=== PATIENT | male | born 1930 | race Caucasian/White ===

== ENCOUNTER → 2016-09-18 | Outpatient (CLI) | payer MEDICARE, OTHER ==
[~2016-09-18] MED LIST: ACETAMINOPHEN500 M1 PO; ASPIRIN LO-DOSE81 MG PO; BENADRYL25 MG PO; CELEXA20 MG PO; CELEXA40 MG PO; FLOMAX0.4 MG PO; FLONASE 50 MCG/16 GM NOSE; ICAPS TABLET1 EACH PO; LEVAQUIN 250 M250 MG PO; LIPITOR40 MG PO; LISINOPRIL10 MG PO; METOPROLOL PO; NITROSTAT0.4 MG SL; PEPCID40 MG PO; SALINE NOSE SPR45 ML NOSE; SYSTANE GEL EYE10 ML OPHTH; TOPROL XL25 MG PO; TRIAMTERENE PO
[2016-09-18 11:38] LABS: ANION GAP 11.6 (10.0-19.0); CALCIUM 8.8 mg/dL (8.5-10.5); POTASSIUM 4.6 mMol/L (3.7-5.1)
== END | disposition disaster alternative care site (69) ==
LOC: LGSOS 11:23
PROVIDERS: Internal Medicine Interventional Cardiology
DX: I50.9 Heart failure, unspecified (principal)

== ENCOUNTER → 2016-10-02 | Outpatient (CLI) | payer MEDICARE, OTHER ==
[2016-10-02 14:32] LABS: ANION GAP 10.3 (10.0-19.0); CALCIUM 8.4 mg/dL (8.5-10.5); CREATININE 1.8 mg/dL (0.6-1.3); POTASSIUM 4.3 mMol/L (3.7-5.1)
== END | disposition disaster alternative care site (69) ==
LOC: LGSOS 14:16
PROVIDERS: Internal Medicine Interventional Cardiology
DX: I50.9 Heart failure, unspecified (principal)

== ENCOUNTER → 2016-11-14 | Outpatient (CLI) | payer MEDICARE, OTHER ==
[2016-11-14 12:09] LABS: ANION GAP 11.5 (10.0-19.0); CALCIUM 8.4 mg/dL (8.5-10.5); CREATININE 1.8 mg/dL (0.6-1.3)
[2016-11-14 12:12] LABS: POTASSIUM 4.5 mMol/L (3.7-5.1)
== END | disposition disaster alternative care site (69) ==
LOC: LGSOS 11:56
PROVIDERS: Internal Medicine Interventional Cardiology
DX: I50.9 Heart failure, unspecified (principal)

== ENCOUNTER → 2017-01-03 | Outpatient (CLI) | payer MEDICARE, OTHER ==
[2017-01-03 11:45] LABS: ALBUMIN 3.7 gm/dL (3.5-5.0); TOTAL BILIRUBIN 0.7 mg/dL (0.0-1.5); TOTAL PROTEIN 7.7 g/dL (6.0-8.4)
== END ==
LOC: LGSOS 10:08
PROVIDERS: Internal Medicine Interventional Cardiology
DX: I50.9 Heart failure, unspecified (principal)

== ENCOUNTER → 2017-01-05 | Outpatient (CLI) | payer MEDICARE, OTHER | END | disposition disaster alternative care site (69) | LOC: GRAD 09:19 | DX: M54.2 Cervicalgia (principal); M47.892 Other spondylosis, cervical region; M43.13 Spondylolisthesis, cervicothoracic region ==

== ENCOUNTER 2017-03-21 06:02 | Emergency (ER) | payer MEDICARE, OTHER ==
--- NOTE | ~2017-03-21 | ER ---
PATIENT'S NAME: MANA VILLALOBOS [facility] AGE: 86 Y [address] ROOM: [place] [address] LOCATION: [facility] ADMIT DATE: 03/21/2017 ER/Outpatient Report DISCHARGE DATE: FAMILY PHYSICIAN: Ashok Nichols MD ATTENDING PHYSICIAN: Seymour Sams CHIEF COMPLAINT: Shortness of breath. HISTORY OF PRESENT ILLNESS: Mr. Villalobos arrives by ambulance. He is a very poor historian. His arrived shortly after. Apparently, he has not slept well all night and has been up secondary to difficulty breathing. Initially, his did not give many details, but as the situation progressed, she noted that he had been asking to and has been struggling a lot recently. They are very clear that they wanted DNR, however, I wanted to make him comfortable and try to get him feeling better. The notes that he has a significant bad heart valve that they will not fix and a history of heart disease with bypass. He follows primarily with Dr. Cash. No recent fevers or chills are noted, but about a week ago, the patient had a significant episode of vomiting. He denies any other symptoms currently. The patient has significant history of having some very low blood pressures this morning in the 60s/40s according to the . EMS reports no hypotension for them. They did not obtain any rhythm strips. PAST MEDICAL HISTORY: Documented on the record and reviewed by me. SOCIAL HISTORY: Documented on the record and reviewed by me. MEDICATIONS: Documented on the record and reviewed by me. ALLERGIES: DOCUMENTED ON THE RECORD AND REVIEWED BY ME. REVIEW OF SYSTEMS: All systems reviewed and negative except as noted in the HPI. PHYSICAL EXAMINATION: VITAL SIGNS: Blood pressure on arrival 126/83, pulse is recorded as 88, however, he was viewed to be 124-126 with minimal variation and what appears to be a moderately wide-complex tachycardia; temperature is 99.6; and SpO2 is 88% on room air, was varied up to 92% on room air. Pain is 0/10. PATIENT'S NAME: MANA VILLALOBOS [facility] AGE: 86 Y [address] ROOM: [place] [address] LOCATION: [facility] ADMIT DATE: 03/21/2017 ER/Outpatient Report DISCHARGE DATE: FAMILY PHYSICIAN: Ashok Nichols MD ATTENDING PHYSICIAN: Seymour Sams GENERAL: Age-appropriate male, recumbent on the exam table, wheezing, with no complaints currently. He states his breathing is much better than it was before and he does not have any symptoms. NEUROLOGIC: The patient is awake, he is mildly confused, his speech is clear, he is able to follow commands. HEENT: Normocephalic, atraumatic. Eyes are PERRL. Oropharynx is grossly clear. NECK: Supple. Trachea is midline. CHEST: Heart is tachycardic with possible murmur, lung exam with coarse breath sounds throughout and audible wheezing, which makes definitive cardiac exam difficult. ABDOMEN: Obese but soft and nontender. No rebound or guarding. BACK: Normal to inspection. EXTREMITIES: Warm, well formed, well perfused with no edema appreciated throughout. SKIN: Diaphoretic on the trunk and anywhere there was contact, but not dripping. He is more comfortable sitting semi-upright. IMAGING: There are bilateral pulmonary infiltrates with large cardiac silhouette versus left-sided pleural effusion. EKG initially reveals regular tachycardia, borderline wide complex, not clear whether SVT or stable ventricular tachycardia. LABORATORY DATA: ABG; pH is 7.49, pCO2 is 28, pO2 is 71, lactate is 1.4. CBC: White count 16.7, hemoglobin 13.7, platelets of 356. INR is 1.1. D-dimer 0.77. CMS: Sodium is 134; potassium 5.2, reported as hemolyzed specimen; chloride is 104; CO2 is 19; glucose 152; BUN is 36; creatinine 2.3; and GFR is 25. LFTs with no appreciable abnormalities of bilirubin or the transaminases. Procalcitonin is 0.10. CPK is 111, CK-MB is 3.0, troponin [place] 6[place] [address]. Repeat EKG with slower rhythm of approximately 100 beats per minute with no significant morphologic changes. Markedly different morphologies compared to prior EKG from 04/04/2016. IMPRESSION: 1. . 2. Cardiac arrest of unclear etiology. 3. Tachycardia, likely stable ventricular tachycardia. 4. Acute renal injury versus azotemia, unclear baseline, but elevation from last March. 5. Respiratory failure. 6. Elevated troponin. PATIENT'S NAME: MANA VILLALOBOS [facility] AGE: 86 Y [address] ROOM: [place] [address] LOCATION: ED ADMIT DATE: 03/21/2017 ER/Outpatient Report DISCHARGE DATE: FAMILY PHYSICIAN: Ashok Nichols MD ATTENDING PHYSICIAN: Seymour Sams 7. Elevated proBNP. 8. Leukocytosis. 9. Possible heart failure. EMERGENCY DEPARTMENT COURSE: The patient was seen and evaluated at bedside. He was hemodynamically stable and his EKG was not clear. He had no symptoms at that time and was feeling okay. I discussed the EKG with on-call Cardiology, Dr. Thomas, who recommended adenosine, however upon further discussion with the family, they preferred to wait for middle school football coach. At that time, shift change had happened for the honing machine operator production cardiology and I called Dr. Terrell, middle school football coach, to evaluate the patient. With the patient's extensive cardiac history, Dr. Terrell was concerned for ventricular tachycardia. He requested the patient receive amiodarone and Bumex, which were given. Heparin was initiated after return of his labs. At that time, the decision was made to perform cardioversion to try to get him back into a normal rhythm. Anesthesia was called to do the sedation, pretreated with lidocaine and sedated with propofol after signing a permit. Dr. Terrell attempted synchronized cardioversion. After pressing the button, the patient had a few beats of what appeared to be p-waves on the monitor with no organized rhythm. He was determined to be pulseless at that time and CPR was initiated. I spoke extensively with family and they wished that we attempt resuscitation at this time. CPR was continued. The patient was intubated using an 8.0 tube and a GlideScope on the first pass after succinylcholine. The code blue was initiated and the flow sheet was followed. The patient received many rounds of epinephrine as well as calcium and atropine. We did in fact order and initiate tPA as well. The BENITEZ device was placed and he was maintained in CPR per ACLS protocol. A bedside echo showed no cardiac activity. The patient occasionally would have PEA versus asystole. After approximately 40 minutes of CPR, it was determined that the patient would not recover. We were oxygenating with an end-tidal CO2 of approximately 21 and brought his O2 saturations up to the mid 90s, however, we were unable to regain cardiac activity. We discussed the futility of the situation with the family and we stopped resuscitation efforts and the patient was pronounced at 9:02 a.m. The cause of at this time definitively is unknown, however, it is likely cardiac in nature and related to his heart failure and aortic stenosis. CRITICAL CARE TIME: 45 minutes of critical care time was spent on this patient in assimilating information; review of his prior records; obtaining records from the transferring hospital; patient evaluation, patient re-evaluation; ordering and interpreting chest x-ray, EKG, and labs; consult with Cardiology. I also directed CPR per ACLS protocol. I directly supervised intubation, which was performed by Varsha Venegas, flight nurse, without difficulty and confirmed tube placement. We did externally pace him initially during the code and PATIENT'S NAME: MANA VILLALOBOS [facility] AGE: 86 Y [address] ROOM: [place] [address] LOCATION: [facility] ADMIT DATE: 03/21/2017 ER/Outpatient Report DISCHARGE DATE: FAMILY PHYSICIAN: Ashok Nichols MD ATTENDING PHYSICIAN: Seymour Sams ultimately the patient did . Please see the code flow sheet for details of time of administration of all other medications. The family has declined autopsy and further evaluation. All questions were answered and [facility] MD SHY JONES/aileenl /[id number] d: 03/21/17 1812 t: 03/26/17 0643, OUTPATIENT REPORT
--- NOTE | ~2017-03-21 | CON ---
PATIENT'S NAME: MANA ASHLEY [facility] AGE: 86 Y [address] ROOM: [place] [address] LOCATION: [facility] ADMIT DATE: 03/21/2017 Consultation DISCHARGE DATE: 03/21/2017 FAMILY PHYSICIAN: Ashok Nichols MD ATTENDING PHYSICIAN: Seymour Sams DATE OF CONSULTATION: 03/21/2017 HISTORY OF PRESENT ILLNESS: This is an 86-year-old gentleman who arrived to the emergency room by ambulance because of shortness of breath. He was very hard of hearing and history was obtained from his and 2 daughters. He was unable to lie down to sleep last night. He complained of chest tightness and the gave him 1 nitroglycerin with partial improvement. At daybreak, he agreed to call the unit and be transported to the hospital. He has history of remote coronary bypass surgery more than 10 years earlier and previous documentation of severe aortic stenosis. When he arrived to the emergency room, he was found to be in a wide-complex tachycardia. I was asked to come and evaluate the patient. My impression is that this new-onset wide-complex tachycardia was ventricular. We administered 150 mg of amiodarone, which slowed the rate from 125 to about 110. A second bolus slowed the rate to about 98 beats per minute. The patient remained orthopneic, but he was conversant. I decided to proceed with synchronized cardioversion. We called anesthesia who pretreated the patient. When deeply asleep, I delivered a single synchronized 200 joule shock. Subsequently, I observed ventricular standstill with only P-waves evident. We immediately started transcutaneous pacing and administered epinephrine and when the patient did not recover, full resuscitation ensued with first manual chest compressions followed by use of the Terrence device. Despite several rounds of epinephrine, good ventilation with endotracheal tube, the patient remained in mostly asystole. Stat echocardiogram showed very poor left ventricular systolic activity. After about 40 minutes of resuscitation efforts, after consultation with the family, we agreed to abandon the resuscitation. His laboratory values were notable for an acute kidney injury with a creatinine of 2.3, estimated GFR of 25, and potassium 5.2. His troponin was 6.7, CK-MB 3, CPK 111, and pro-BNP 15,644. CONCLUSION: , congestive heart failure, aortic stenosis, wide-complex tachycardia, unsuccessful attempt to cardiovert. ANGELA DUFF MD PATIENT'S NAME: MANA ASHLEY [facility] AGE: 86 Y [address] ROOM: [place] [address] LOCATION: [facility] ADMIT DATE: 03/21/2017 Consultation DISCHARGE DATE: 03/21/2017 FAMILY PHYSICIAN: Ashok Nichols MD ATTENDING PHYSICIAN: Seymour Sams PE/randi /[id number] d: 03/22/17213 t: 03/22/17 1001, CONSULTATION REPORT
[2017-03-21 06:41] LABS: BICARBONATE 21.3 mmol/L (18.0-23.0); LACTATE 1.4 mEq/L (0.50-1.60); PCO2 28 mmHg (35-45); PO2 71 mmHg (80-90)
[2017-03-21 06:45] LABS: BASOPHIL # 0.1 K/uL (0.0-0.2); BASOPHIL % 0.4 %; EOSINOPHIL # 0.1 K/uL (0.0-0.5); EOSINOPHIL % 0.3 %; HEMOGLOBIN 13.7 g/dL (11.0-16.0); IMMATURE GRANULOCYTE # 0.1 K/uL (0.0-0.3); IMMATURE GRANULOCYTE % 0.8 %; LYMPHOCYTE # 0.5 K/uL (0.8-4.0); MCH 29.4 pg (27.0-34.0); MCHC 33.4 gm/dL (32.0-36.5); MONOCYTE # 0.9 K/uL (0.0-1.0); MONOCYTE % 5.6 %; MPV 9.9 fl (9.4-12.4); NEUTROPHIL % 89.9 %; NRBC % 0 /100WBC (0-0.00); PLATELET COUNT 356 K/uL (150-450); RBC 4.66 M/uL (3.50-5.50); RDW-CV 14.5 % (11.9-14.6)
[2017-03-21 06:49] LABS: WBC 16.7 K/uL (4.0-11.0)
[2017-03-21 06:51] LABS: INR - (THERAPEUTIC) 1.11 (0.92-1.07); PROTIME 11.7 SECONDS (9.8-11.4); PTT 33 SECONDS (25-32)
[2017-03-21 07:02] LABS: ALBUMIN 3.1 gm/dL (3.5-5.0); CALCIUM 8.8 mg/dL (8.5-10.5); CREATININE 2.3 mg/dL (0.6-1.3); TOTAL PROTEIN 7.9 g/dL (6.0-8.4)
[2017-03-21 07:05] LABS: ANION GAP 16.2 (10.0-19.0); TOTAL BILIRUBIN 1.1 mg/dL (0.0-1.5)
[2017-03-21 07:06] LABS: POTASSIUM 5.2 mMol/L (3.7-5.1)
== END 2017-03-21 09:02 | disposition expired ==
LOC: GMED 06:02
PROVIDERS: Emergency Medicine
PROC: 5A2204Z Restoration of Cardiac Rhythm, Single (ICD-10-PCS; principal; 2017-03-21)
PROC: 5A02216 Assistance with Cardiac Output using Other Pump, Continuous (ICD-10-PCS; 2017-03-21)
PROC: 0BH17EZ Insertion of Endotracheal Airway into Trachea, Via Natural or Artificial Opening (ICD-10-PCS; 2017-03-21)
DX: I46.9 Cardiac arrest, cause unspecified (principal); R00.0 Tachycardia, unspecified; J96.90 Respiratory failure, unspecified, unspecified whether with hypoxia or hypercapnia; R74.8 Abnormal levels of other serum enzymes; D72.829 Elevated white blood cell count, unspecified; R79.89 Other specified abnormal findings of blood chemistry; I11.0 Hypertensive heart disease with heart failure; I50.9 Heart failure, unspecified; J44.9 Chronic obstructive pulmonary disease, unspecified; I35.0 Nonrheumatic aortic (valve) stenosis; F32.9 Major depressive disorder, single episode, unspecified; Z88.0 Allergy status to penicillin; Z79.899 Other long term (current) drug therapy
CPT/HCPCS: J0153; J0171; J0282; J0461; J1644; J7030